=== PATIENT | female | born 1970 | race Caucasian/White ===

== ENCOUNTER 2022-10-13 18:25 | Emergency (ER) | payer MEDICAID ==
[~2022-10-13] VITALS: Ht 157.5 cm; Wt 59.0 kg
[2022-10-13 18:52] VITALS: BP 128/70
--- NOTE | 2022-10-13 20:15 | NUR ---
Dr. Carlin examnining patient.
[2022-10-13] MEDS ORDERED: AMOX1TAB8 PO (20:54)
[2022-10-13] MEDS ORDERED: AMOXIL/CLAVULANATE 875/125 MG 1 TAB PO ONE (21:00)
[2022-10-13 21:21] VITALS: BP 122/70
--- NOTE | 2022-10-13 21:21 | NUR ---
Patient discharged with v/s stable. Written and verbal after care instructions given and explained. Patient alert, oriented and verbalized understanding of instructions. Ambulatory with steady gait. All questions addressed prior to discharge. ID band removed. Patient advised to follow up with PMD. Rx of Amox-clav given. Patient educated on indication of medication including possible reaction and side effects. Opportunity to ask questions provided and answered.
== END 2022-10-13 21:21 | disposition home or self-care (01) ==
LOC: MED 18:25
DX: S91.052A Open bite, left ankle, initial encounter (principal); I10 Essential (primary) hypertension; Z79.899 Other long term (current) drug therapy; W54.0XXA Bitten by dog, initial encounter; Y93.89 Activity, other specified; Y92.89 Other specified places as the place of occurrence of the external cause; Y99.8 Other external cause status
CPT/HCPCS: 99283